=== PATIENT | male | born 1935 | race Hispanic/Latino ===

== ENCOUNTER 2017-10-07 01:36 | Observation (INO) | payer MEDICARE, BC ==
[2017-10-07 03:46] LABS: #Basophils 0.1 thou/uL (0.0-0.2); #Eosinphils 0.1 thou/uL (0.0-0.7); #Lymphocytes 2.3 thou/uL (1.20-3.40); #Monocytes 0.5 thou/uL (0.11-0.59); #Neutrophils 3.9 thou/uL (1.40-6.50); %Basophils 0.9 % (0.0-1.0); %Eosinophils 1.1 % (0.0-10.0); %Lymphocytes 33.6 % (21.0-51.0); %Monocytes 7.5 % (0.0-10.0); %Neutrophils 56.9 % (42.0-75.0); Hemoglobin 13.8 g/dL (14.0-18.0); Mean Corpuscular HGB CONC 35.2 g/dL (32.0-36.0); Mean Corpuscular Hemoglobin 33.1 pg (27.0-31.0); Mean Corpuscular Volume 94.1 fl (80.0-94.0); Mean Platelet Volume 7.9 fL (7.4-10.4); Platelet Count 162 thou/uL (130-400); RBC Distribution Width 12.9 % (11.5-14.5); Red Blood Cell (RBC) Count 4.16 mill/uL (4.70-6.10); White Blood Cell (WBC) Count 6.9 thou/uL (4.8-10.8)
[2017-10-07 04:06] LABS: ALT (SGPT) 14 U/L (8-55); AST (SGOT) 20 U/L (5-34); Albumin 4.1 g/dL (3.4-4.8); Alkaline Phosphatase 41 U/L (40-150); Anion Gap 9 mmol/L (10-20); BUN (Urea Nitrogen) 25 mg/dL (8.4-25.7); Bilirubin, Total 0.7 mg/dL (0.2-1.2); Calc. Creatinine Clearance 0 mL/min (70-130); Carbon Dioxide 29 mmol/L (23-31); Chloride 107 mmol/L (98-107); Estimated GFR-MDRD 66; Globulin 3.2 g/dL (2.4-3.5); Glucose 102 mg/dL (83-110); Magnesium 2.3 mg/dL (1.6-2.6); Potassium 4.7 mmol/L (3.5-5.1); Protein, Total 7.3 g/dL (5.8-8.1); Sodium 140 mmol/L (136-145)
[2017-10-07 06:02] LABS: CKMB 5.3 ng/mL (0-6.6); Troponin I Less than 0.010 ng/mL (< 0.028)
[2017-10-07 06:48] LABS: Bilirubin Negative (Negative); Blood, Urine Negative (Negative); Clarity CLOUDY (Clear); Glucose, Urine (Dipstick) Negative (Negative); Leukocyte Negative (Negative); Nitrite Negative (Negative); Protein, Urine (Dipstick) Negative (Neg-Trace); Specific Gravity, Urine 1.018 (1.002-1.036); Urobilinogen 0.2 mg/dL (0.2-1.0)
--- NOTE | 2017-10-07 08:17 | RAD ---
PORTABLE CHEST: DATE: 10/07/17. PROVIDIED CLINICAL HISTORY: Panic attacks. FINDINGS: Comparison 02/24/11. Cardiac and mediastinal silhouette is within normal limits. No focal consolidat ion, pleural fluid, or pneumothorax apparent. IMPRESSION: No evidence for an acute cardiopulmonary process. POS: MIKE
[2017-10-07 08:30] LABS: Troponin I Less than 0.010 ng/mL (< 0.028)
[2017-10-07] MEDS ORDERED: Acetaminophen 325 MG TAB PO PRN (08:38)
[2017-10-07 10:35] VITALS: BMI 24.0
[2017-10-07] MEDS ORDERED: Famotidine 20 MG TAB PO SCH (11:00)
[2017-10-07 16:00] LABS: Troponin I Less than 0.010 ng/mL (< 0.028)
[2017-10-07 21:22] LABS: Troponin I Less than 0.010 ng/mL (< 0.028)
[2017-10-07] MEDS ORDERED: Melatonin 3 MG TAB PO PRN (23:25)
[2017-10-07] MEDS ORDERED: traMADol HCl 50 MG TAB PO PRN (23:25)
[2017-10-08 04:54] LABS: #Basophils 0.1 thou/uL (0.0-0.2); #Eosinphils 0.1 thou/uL (0.0-0.7); #Lymphocytes 2.3 thou/uL (1.20-3.40); #Monocytes 0.4 thou/uL (0.11-0.59); #Neutrophils 2.9 thou/uL (1.40-6.50); %Basophils 1.3 % (0.0-1.0); %Eosinophils 0.9 % (0.0-10.0); %Lymphocytes 39.9 % (21.0-51.0); %Monocytes 7.3 % (0.0-10.0); %Neutrophils 50.7 % (42.0-75.0); Hemoglobin 13.1 g/dL (14.0-18.0); Mean Corpuscular Hemoglobin 31.8 pg (27.0-31.0); Mean Corpuscular Volume 93.4 fl (80.0-94.0); Platelet Count 153 thou/uL (130-400); RBC Distribution Width 12.6 % (11.5-14.5); Red Blood Cell (RBC) Count 4.12 mill/uL (4.70-6.10); White Blood Cell (WBC) Count 5.8 thou/uL (4.8-10.8)
[2017-10-08 05:22] LABS: Anion Gap 9 mmol/L (10-20); BUN (Urea Nitrogen) 20 mg/dL (8.4-25.7); Calc. Creatinine Clearance 57 mL/min (70-130); Carbon Dioxide 26 mmol/L (23-31); Cardiac Risk 3.5 (Less than 4.5); Chloride 106 mmol/L (98-107); Cholesterol 174 mg/dl (< 200 Desired); Estimated GFR-MDRD 78; Glucose 82 mg/dL (83-110); HDL Cholesterol 50 mg/dL (>60 Neg Risk); LDL Cholesterol, Calculated 105 mg/dL; Potassium 4.2 mmol/L (3.5-5.1); Sodium 137 mmol/L (136-145); Triglycerides 94 mg/dL (Less than 150)
--- NOTE | 2017-10-08 08:45 | PDOC.EVN ---
Event Note - Event Note Event Note: [facility] DICTATED #[id number]
--- NOTE | 2017-10-08 09:42 | HP ---
DATE OF ADMISSION: 10/07/2017 CHIEF COMPLAINT: Epigastric and chest pain. HISTORY OF PRESENT ILLNESS: This is an 82-year-old male admitted to the hospital due to epigastric chest pain and burning sensation. The patient states that he has been having these issues as well as panic attacks in the recent past few days. The patient states that he was at his PCP's office and was given Xanax; however, this has not helped him at all. He states that whenever he goes to sleep, he is having difficulty sleeping. He has severe panic attack and is unable to bring himself back to normal. The patient states that he has otherwise no other associated issues. No alleviating or aggravating factors and this is not something that was there until recently. PAST SURGICAL HISTORY: None per patient. SOCIAL HISTORY: The patient denies drinking or smoking. FAMILY HISTORY: None. MEDICATIONS: Xanax p.r.n. and [id number] medications. ALLERGIES: No known drug allergies. REVIEW OF SYSTEMS: Twelve point review of systems performed. Pertinent positives in the HPI, otherwise negative. PHYSICAL EXAMINATION: VITAL SIGNS: Blood pressure is 108/57, O2 saturations 96% on room air, temperature 98.1, pulse of 62, respiratory rate of 14. GENERAL: The patient lying in bed in no acute discomfort. HEENT: Pupils equal, round, react to light. Extraocular muscles intact. Oral cavity moist and pink. CARDIOVASCULAR: Reveals regular rate and rhythm. S1 and S2. No murmurs, rubs or gallops appreciated. PULMONARY: Clear to auscultation bilaterally aerating well. No respiratory distress. ABDOMEN: Positive bowel sounds, soft, nontender. EXTREMITIES: 2+ peripheral pulses. No edema. NEUROLOGIC: Cranial nerves II-XII intact, no loss of motor sensory function. LABORATORY DATA: CBC normal. BMP normal. TSH normal. UA normal. ASSESSMENT AND PLAN: 1. Epigastric pain. 2. Chest pain. PLAN: We will admit the patient to tele observation, do a cardiac workup. Trend troponins. Repeat labs in the morning. Get an echocardiogram. If all negative, the patient likely will be discharged with a PPI and follow up outpatient with his primary care team. Patient and family wish to keep him as a full code. Case and plan discussed with the patient at length. He understands and agrees with this plan. MATTIE
--- NOTE | 2017-10-08 09:43 | PDOC.EVN ---
Event Note - Event Note Event Note: DC SUMMARY #[id number]
[2017-10-08 11:51] VITALS: BP 100/59; TEMP 97.9
--- NOTE | 2017-10-08 13:22 | DIS ---
DATE OF ADMISSION: 10/07/2017 DATE OF DISCHARGE: 10/08/2017 ADMISSION DIAGNOSES: Epigastric pain, chest discomfort. DISCHARGE DIAGNOSES: 1. Chest pain, resolved. 2. Epigastric pain, likely secondary to gastroesophageal reflux disease. HOSPITAL COURSE: An 82-year-old male who was admitted for epigastric pain as well as panic episodes. He states that he had epigastric pain and chest discomfort and so decided to present to the ER. Th e patient at the point in time of admission was found to be stable, was admitted to the [facility] followed by Internal Medicine with 4 negative cardiac enzymes and a normal urina lysis, normal TSH as well as a normal lipid panel, normal CBC, normal BMP repeated twice. The patien t had an echocardiogram performed as well which was acceptable. The patient upon time of discharge w as stable. He denied any nausea, vomiting, diarrhea or constipation, chest pain, shortness of breath . The patient was to follow up outpatient within 2 weeks with expectant management for further manag ement and care. The patient was given a prescription for Protonix 40 mg to be taken daily. Case and plan discussed with the patient's , as well as his son at length. They understand and agree wit h this plan. DISPOSITION: Home. FOLLOWUP: Follow up with PCP in 2 weeks. MEDICATIONS: Resume home medication. Script for Protonix 40 mg daily, given. CONDITION ON DISCHARGE: Stable. PROGNOSIS: Good. DIET: Low fat, low calorie, high fiber diet. ACTIVITY: As tolerated.
== END 2017-10-08 15:18 | disposition home or self-care (01) ==
LOC: ERS 01:36 → 2SW 10:10
PROVIDERS: ADMIT Internal Medicine; ATTEND Internal Medicine
DX: R07.89 Other chest pain (principal); R10.13 Epigastric pain; F41.0 Panic disorder [episodic paroxysmal anxiety]; Z79.899 Other long term (current) drug therapy
CPT/HCPCS: 71045; 80048; 80061; 81003; 82553; 83735; 83880; 84484 ×2; 85025; 93005; 93306; 99285; G0378; 36415; 80053; 84443; A4216

== ENCOUNTER 2021-05-14 06:38 | Observation (INO) | payer MEDICARE, BC ==
[2021-05-14 07:34] LABS: #Lymphocytes 1.5 thou/uL (1.20-3.40); #Monocytes 0.4 thou/uL (0.11-0.59); #Neutrophils 3.8 thou/uL (1.40-6.50); %Basophils 0.6 % (0.0-1.0); %Eosinophils 0.8 % (0.0-10.0); %Lymphocytes 26.2 % (21.0-51.0); %Monocytes 6.8 % (0.0-10.0); %Neutrophils 65.7 % (42.0-75.0); Hemoglobin 13.1 g/dL (14.0-18.0); Mean Corpuscular HGB CONC 34.9 g/dL (32.0-36.0); Mean Corpuscular Hemoglobin 33.7 pg (27.0-31.0); Mean Corpuscular Volume 96.5 fL (78.0-98.0); Mean Platelet Volume 8.4 fL (7.4-10.4); Platelet Count 176 thou/uL (130-400); RBC Distribution Width 11.7 % (11.5-14.5); Red Blood Cell (RBC) Count 3.88 mill/uL (4.70-6.10); White Blood Cell (WBC) Count 5.7 thou/uL (4.8-10.8)
[2021-05-14 07:54] LABS: ALT (SGPT) 13 U/L (8-55); AST (SGOT) 19 U/L (5-34); Acetaminophen Less than 6.0 mcg/mL (10.0-30.0); Albumin 3.7 g/dL (3.4-4.8); Alcohol Less than 10 mg/dL (Less than 10); Alkaline Phosphatase 49 U/L (40-110); Anion Gap 17 mmol/L (10-20); BUN (Urea Nitrogen) 20 mg/dL (8.4-25.7); Bilirubin, Total 0.7 mg/dL (0.2-1.2); Calc. Creatinine Clearance 0 mL/min (70-130); Calcium 9.6 mg/dL (7.8-10.44); Carbon Dioxide 19 mmol/L (23-31); Chloride 104 mmol/L (98-107); Globulin 3.4 g/dL (2.4-3.5); Glucose 125 mg/dL (83-110); Protein, Total 7.1 g/dL (5.8-8.1); Salicylate Less than 8.0 mg/dL (15.0-30.0); Sodium 136 mmol/L (136-145)
[2021-05-14 09:03] LABS: Bilirubin Negative (Negative); Blood, Urine Negative (Negative); Clarity Clear (Clear); Glucose, Urine (Dipstick) Normal (Negative); Ketone, Urine Negative (Negative); Leukocyte Negative Leu/uL (Negative); Nitrite Negative (Negative); Protein, Urine (Dipstick) 10 mg/dL (Neg-Trace); Specific Gravity, Urine 1.012 (1.002-1.036); Urobilinogen Normal mg/dL (Less than 2)
[2021-05-14] MEDS ORDERED: levETIRAcetam in NS 1,500 MG in Premix Bag 1 BAG IVPB SCH (09:45)
[2021-05-14] MEDS ORDERED: Guaifenesin DM 100-10/5 ML UDCUP PO PRN (10:30)
[2021-05-14] MEDS ORDERED: Ondansetron ODT 4 MG TAB PO PRN (10:30)
[2021-05-14] MEDS ORDERED: hydrALAZINE 20 MG/ML VIAL SLOW IVP PRN (10:30)
[2021-05-14] MEDS ORDERED: Acetaminophen 650 MG Suppository PR PRN (10:30)
[2021-05-14] MEDS ORDERED: Ondansetron PF 4 MG/2 ML Vial IVP PRN (10:30)
[2021-05-14] MEDS ORDERED: Acetaminophen 325 MG TAB PO PRN (10:30)
[2021-05-14 12:46] VITALS: BMI 24.7
[2021-05-14] MEDS ORDERED: Atorvastatin Calcium 40 MG TAB PO SCH (21:00)
[2021-05-14] MEDS: levETIRAcetam in NS 1,000 MG in Premix Bag 1 BAG IVPB SCH (21:03)
[2021-05-15 05:30] LABS: Mean Corpuscular HGB CONC 32.7 g/dL (32.0-36.0); Mean Corpuscular Hemoglobin 31.2 pg (27.0-31.0); Mean Corpuscular Volume 95.5 fL (78.0-98.0); Mean Platelet Volume 9.4 fL (7.4-10.4); Platelet Count 147 thou/uL (130-400); RBC Distribution Width 11.6 % (11.5-14.5); Red Blood Cell (RBC) Count 3.86 mill/uL (4.70-6.10); White Blood Cell (WBC) Count 7.8 thou/uL (4.8-10.8)
[2021-05-15 05:45] LABS: Anion Gap 14 mmol/L (10-20); BUN (Urea Nitrogen) 14 mg/dL (8.4-25.7); Calc. Creatinine Clearance 46 mL/min (70-130); Calcium 9.5 mg/dL (7.8-10.44); Carbon Dioxide 20 mmol/L (23-31); Cardiac Risk 4.3 (Less than 4.5); Chloride 109 mmol/L (98-107); Cholesterol 168 mg/dl (< 200 Desired); Glucose 80 mg/dL (83-110); HDL Cholesterol 39 mg/dL (>60 Neg Risk); LDL Cholesterol, Calculated 111 mg/dL; Potassium 4.4 mmol/L (3.5-5.1); Sodium 139 mmol/L (136-145); Triglycerides 90 mg/dL (Less than 150)
[2021-05-15 05:59] LABS: #Eosinphils 0.1 thou/uL (0.0-0.7); #Lymphocytes 1.7 thou/uL (1.20-3.40); #Monocytes 0.7 thou/uL (0.11-0.59); #Neutrophils 5.4 thou/uL (1.40-6.50); %Basophils 0.1 % (0.0-1.0); %Eosinophils 0.8 % (0.0-10.0); %Lymphocytes 21.3 % (21.0-51.0); %Monocytes 9.2 % (0.0-10.0); %Neutrophils 68.6 % (42.0-75.0)
[2021-05-15 08:09] VITALS: TEMP 97.7
[2021-05-15] MEDS: levETIRAcetam in NS 1,000 MG in Premix Bag 1 BAG IVPB SCH (08:51)
[2021-05-15] MEDS ORDERED: Aspirin 81 mg Enteric Coated Tablet PO SCH (09:00)
[2021-05-15 11:43] VITALS: BP 119/65
== END 2021-05-15 12:20 | disposition home or self-care (01) ==
LOC: ERS 06:38 → NEURO 09:56
PROVIDERS: ADMIT Internal Medicine; ATTEND Internal Medicine
DX: R56.9 Unspecified convulsions (principal); G89.29 Other chronic pain; M16.11 Unilateral primary osteoarthritis, right hip; I45.10 Unspecified right bundle-branch block; R00.0 Tachycardia, unspecified; I99.8 Other disorder of circulatory system; K21.9 Gastro-esophageal reflux disease without esophagitis; Z79.899 Other long term (current) drug therapy; Z79.891 Long term (current) use of opiate analgesic
CPT/HCPCS: 70450; 70551; 80048; 80053; 80061; 80307; 81003; 84484; 85025 ×2; 87040; 87086; 93005; 96374; 96376 ×2; 97116; 99285; G0378 ×3; J1953; 36415

== ENCOUNTER 2021-06-28 13:57 | Outpatient (CLI) | payer MEDICARE, BC | END 2021-06-28 13:58 | disposition home or self-care (01) | LOC: EEG 13:57 | PROVIDERS: ATTEND Psychiatry & Neurology Neurology | DX: R56.9 Unspecified convulsions (principal) | CPT/HCPCS: 95816; 95957 ==

== ENCOUNTER 2021-07-05 10:50 | Outpatient (CLI) | payer MEDICARE, BC | END 2021-07-05 10:51 | disposition home or self-care (01) | LOC: MRI 10:50 | PROVIDERS: ATTEND Psychiatry & Neurology Neurology | DX: R56.9 Unspecified convulsions (principal); J34.89 Other specified disorders of nose and nasal sinuses; I67.89 Other cerebrovascular disease | CPT/HCPCS: 70553 ==

== ENCOUNTER 2023-05-10 17:28 | Inpatient (IN) | payer MEDICARE, BC ==
[2023-05-10 18:01] LABS: #Monocytes 0.6 thou/uL (0.11-0.59); #Neutrophils 6.1 thou/uL (1.40-6.50); %Basophils 0.5 % (0.0-1.0); %Eosinophils 0.2 % (0.0-10.0); %Lymphocytes 17.6 % (21.0-51.0); %Monocytes 6.7 % (0.0-10.0); %Neutrophils 74.9 % (42.0-75.0); Hematocrit 32.2 % (42.0-52.0); Hemoglobin 10.6 g/dL (14.0-18.0); Mean Corpuscular HGB CONC 32.9 g/dL (32.0-36.0); Mean Corpuscular Hemoglobin 32.6 pg (27.0-31.0); Mean Corpuscular Volume 99.1 fl (78.0-98.0); Mean Platelet Volume 11.3 fL (7.4-10.4); Platelet Count 196 10x3/uL (130-400); RBC Distribution Width 13.7 % (11.5-14.5); Red Blood Cell (RBC) Count 3.25 mill/uL (4.70-6.10); White Blood Cell (WBC) Count 8.2 10x3/uL (4.8-10.8)
[2023-05-10 18:30] LABS: ALT (SGPT) 14 U/L (8-55); AST (SGOT) 34 U/L (5-34); Albumin 4.2 g/dL (3.4-4.8); Alkaline Phosphatase 45 U/L (40-110); Anion Gap 16 mmol/L (10-20); BUN (Urea Nitrogen) 37 mg/dL (8.4-25.7); Bilirubin, Total 0.6 mg/dL (0.2-1.2); Calc. Creatinine Clearance 0 mL/min (70-130); Calcium 9.7 mg/dL (7.8-10.44); Carbon Dioxide 22 mmol/L (23-31); Chloride 102 mmol/L (98-107); Estimated GFR 40; Globulin 3.1 g/dL (2.4-3.5); Glucose 116 mg/dL (83-110); Lipase 44 U/L (8-78); Potassium 5.3 mmol/L (3.5-5.1); Protein, Total 7.3 g/dL (5.8-8.1); Sodium 135 mmol/L (136-145)
[2023-05-10 18:34] LABS: Troponin I 0.032 ng/mL (< 0.028)
[2023-05-10] MEDS ORDERED: Aspirin Chewable 81 MG TAB ONE (21:20)
[2023-05-10] MEDS ORDERED: Acetaminophen 650 MG Suppository PR PRN (21:55)
[2023-05-10] MEDS ORDERED: Ondansetron ODT 4 MG TAB PO PRN (21:55)
[2023-05-10] MEDS ORDERED: Acetaminophen 325 MG TAB PO PRN (21:55)
[2023-05-10] MEDS ORDERED: Ondansetron PF 4 MG/2 ML Vial IVP PRN (21:55)
[2023-05-11 01:10] VITALS: BMI 16.9
[2023-05-11 02:21] LABS: SARS-CoV-2 NAA Rapid Test Not Detected (NotDetected)
[2023-05-11 03:50] LABS: #Eosinphils 0.1 thou/uL (0.0-0.7); #Monocytes 0.5 thou/uL (0.11-0.59); %Basophils 0.4 % (0.0-1.0); %Eosinophils 1.9 % (0.0-10.0); %Lymphocytes 30.5 % (21.0-51.0); %Monocytes 9.8 % (0.0-10.0); %Neutrophils 57.2 % (42.0-75.0); Hematocrit 26.2 % (42.0-52.0); Hemoglobin 8.9 g/dL (14.0-18.0); Mean Corpuscular Hemoglobin 33.3 pg (27.0-31.0); Mean Corpuscular Volume 98.1 fl (78.0-98.0); Mean Platelet Volume 11.5 fL (7.4-10.4); Platelet Count 142 10x3/uL (130-400); RBC Distribution Width 13.9 % (11.5-14.5); Red Blood Cell (RBC) Count 2.67 mill/uL (4.70-6.10); White Blood Cell (WBC) Count 5.2 10x3/uL (4.8-10.8)
[2023-05-11] MEDS: Sodium Chloride 0.9% 1,000 ML IV SCH ×2 (04:05→17:49)
[2023-05-11 04:17] LABS: Anion Gap 14 mmol/L (10-20); BUN (Urea Nitrogen) 37 mg/dL (8.4-25.7); Calc. Creatinine Clearance 25 mL/min (70-130); Calcium 8.9 mg/dL (7.8-10.44); Carbon Dioxide 22 mmol/L (23-31); Chloride 104 mmol/L (98-107); Estimated GFR 51; Glucose 58 mg/dL (83-110); Potassium 4.8 mmol/L (3.5-5.1); Sodium 135 mmol/L (136-145)
[2023-05-11 04:23] LABS: Troponin I 0.025 ng/mL (< 0.028)
[2023-05-11 04:42] LABS: Bacteria/HPF None Seen HPF (None Seen); Bilirubin Negative (Negative); Blood, Urine Negative (Negative); Clarity Clear (Clear); Glucose, Urine (Dipstick) Normal (Negative); Ketone, Urine Negative (Negative); Leukocyte Negative Leu/uL (Negative); Nitrite Negative (Negative); Protein, Urine (Dipstick) Negative (Neg-Trace); RBC/HPF 0-3 HPF (0-3); Specific Gravity, Urine 1.016 (1.002-1.036); Squamous Epithelial None Seen HPF (0-3); Urobilinogen Normal mg/dL (Less than 2); WBC/HPF 0-3 HPF (0-3)
[2023-05-11] MEDS: Atorvastatin Calcium 20 MG TAB PO SCH (08:52)
[2023-05-11] MEDS: levETIRAcetam 500 MG TAB PO SCH ×2 (08:52→21:16)
[2023-05-11] MEDS ORDERED: Furosemide 20 MG/2 ML VIAL SLOW IVP SCH (15:15)
[2023-05-11] MEDS: Donepezil HCl 5 MG TAB PO SCH (21:16)
[2023-05-12 04:19] LABS: #Eosinphils 0.1 thou/uL (0.0-0.7); #Monocytes 0.5 thou/uL (0.11-0.59); #Neutrophils 4.1 thou/uL (1.40-6.50); %Basophils 0.3 % (0.0-1.0); %Eosinophils 1.8 % (0.0-10.0); %Monocytes 8.3 % (0.0-10.0); %Neutrophils 68.4 % (42.0-75.0); Hematocrit 28.1 % (42.0-52.0); Hemoglobin 9.3 g/dL (14.0-18.0); Mean Corpuscular HGB CONC 33.1 g/dL (32.0-36.0); Mean Corpuscular Hemoglobin 32.4 pg (27.0-31.0); Mean Corpuscular Volume 97.9 fl (78.0-98.0); Mean Platelet Volume 11.6 fL (7.4-10.4); Platelet Count 144 10x3/uL (130-400); RBC Distribution Width 13.9 % (11.5-14.5); Red Blood Cell (RBC) Count 2.87 mill/uL (4.70-6.10)
[2023-05-12 05:00] LABS: Anion Gap 12 mmol/L (10-20); BUN (Urea Nitrogen) 27 mg/dL (8.4-25.7); Calc. Creatinine Clearance 28 mL/min (70-130); Calcium 8.9 mg/dL (7.8-10.44); Carbon Dioxide 25 mmol/L (23-31); Chloride 106 mmol/L (98-107); Estimated GFR 58; Glucose 83 mg/dL (83-110); Potassium 4.3 mmol/L (3.5-5.1); Sodium 139 mmol/L (136-145)
[2023-05-12] MEDS: Atorvastatin Calcium 20 MG TAB PO SCH (09:26)
[2023-05-12] MEDS: levETIRAcetam 500 MG TAB PO SCH ×2 (09:26→20:28)
[2023-05-12] MEDS ORDERED: CeleCOXIB 100 MG CAP PO SCH ×2 (10:15→16:45)
[2023-05-12 15:26] LABS: Magnesium 1.8 mg/dL (1.6-2.6)
[2023-05-12] MEDS: Donepezil HCl 5 MG TAB PO SCH (20:28)
[2023-05-13 04:32] LABS: #Eosinphils 0.1 thou/uL (0.0-0.7); #Monocytes 0.5 thou/uL (0.11-0.59); #Neutrophils 3.1 thou/uL (1.40-6.50); %Basophils 0.4 % (0.0-1.0); %Eosinophils 1.6 % (0.0-10.0); %Lymphocytes 27.2 % (21.0-51.0); %Monocytes 9.4 % (0.0-10.0); %Neutrophils 61.2 % (42.0-75.0); Hematocrit 28.9 % (42.0-52.0); Hemoglobin 9.4 g/dL (14.0-18.0); Mean Corpuscular HGB CONC 32.5 g/dL (32.0-36.0); Mean Corpuscular Hemoglobin 32.1 pg (27.0-31.0); Mean Corpuscular Volume 98.6 fl (78.0-98.0); Mean Platelet Volume 11.7 fL (7.4-10.4); Platelet Count 154 10x3/uL (130-400); Red Blood Cell (RBC) Count 2.93 mill/uL (4.70-6.10); White Blood Cell (WBC) Count 5.1 10x3/uL (4.8-10.8)
[2023-05-13 05:09] LABS: Anion Gap 12 mmol/L (10-20); BUN (Urea Nitrogen) 27 mg/dL (8.4-25.7); Calc. Creatinine Clearance 25 mL/min (70-130); Calcium 8.6 mg/dL (7.8-10.44); Carbon Dioxide 23 mmol/L (23-31); Chloride 106 mmol/L (98-107); Estimated GFR 50; Glucose 82 mg/dL (83-110); Magnesium 1.8 mg/dL (1.6-2.6); Potassium 4.4 mmol/L (3.5-5.1); Sodium 137 mmol/L (136-145)
[2023-05-13] MEDS: Atorvastatin Calcium 20 MG TAB PO SCH (08:00)
[2023-05-13] MEDS: levETIRAcetam 500 MG TAB PO SCH (08:01)
[2023-05-13] MEDS ORDERED: CeleCOXIB 100 MG CAP PO SCH (09:00)
[2023-05-13 11:27] VITALS: BP 99/53; TEMP 97.9
== END 2023-05-13 16:42 | disposition home or self-care (01) | DRG 291 ==
LOC: ERS 17:28 → 2SW 21:55 → OBSVTOIN 05-11 16:02
PROVIDERS: ADMIT Student in an Organized Health Care Education/Training Program; ATTEND Nurse Practitioner Family
DX: I13.0 Hypertensive heart and chronic kidney disease with heart failure and stage 1 through stage 4 chronic kidney disease, or unspecified chronic kidney disease (principal); I50.31 Acute diastolic (congestive) heart failure; J90 Pleural effusion, not elsewhere classified; N17.9 Acute kidney failure, unspecified; Z66 Do not resuscitate; I48.0 Paroxysmal atrial fibrillation; E78.5 Hyperlipidemia, unspecified; G40.909 Epilepsy, unspecified, not intractable, without status epilepticus; K21.9 Gastro-esophageal reflux disease without esophagitis; N18.9 Chronic kidney disease, unspecified; R77.8 Other specified abnormalities of plasma proteins; D63.1 Anemia in chronic kidney disease; R53.81 Other malaise; Z88.5 Allergy status to narcotic agent; Z79.899 Other long term (current) drug therapy; Z11.52 Encounter for screening for COVID-19
CPT/HCPCS: 36415; 36416; 71045; 80048; 80053; 81001; 83690; 83735; 83880; 84484; 85025; 93005; 93010; 93306; G0378; J1940; J7050; U0002

== ENCOUNTER → 2023-11-22 | Day surgery (SDC) | payer MEDICARE, BC ==
[2023-11-21 12:36] VITALS: BMI 28.5
[~2023-11-22] MED LIST: Lidocaine 1% PF 5 ML VIAL ONE; PROPOFOL 20 ML ONE
== END ==
LOC: SDC 06:15
PROVIDERS: ATTEND Internal Medicine Gastroenterology
PROC: 0DB68ZX Excision of Stomach, Via Natural or Artificial Opening Endoscopic, Diagnostic (ICD-10-PCS; principal; 2023-11-22)
DX: K29.50 Unspecified chronic gastritis without bleeding (principal); K31.89 Other diseases of stomach and duodenum; K25.9 Gastric ulcer, unspecified as acute or chronic, without hemorrhage or perforation; D64.9 Anemia, unspecified; E11.9 Type 2 diabetes mellitus without complications; E78.00 Pure hypercholesterolemia, unspecified; Z86.010 Personal history of colon polyps; E78.5 Hyperlipidemia, unspecified; M19.90 Unspecified osteoarthritis, unspecified site; Z98.890 Other specified postprocedural states; Z79.899 Other long term (current) drug therapy; Z88.5 Allergy status to narcotic agent
CPT/HCPCS: 43239; J2704; 88305; 88342

== ENCOUNTER 2025-02-06 18:04 | Emergency (ER) | payer MEDICARE, BC ==
[2025-02-06 18:41] LABS: #Basophils Less than 0.03 10x3/uL (0.0-0.2); #Eosinophils 0.03 10x3/uL (0.0-0.7); #Monocytes 0.47 10x3/uL (0.11-0.59); #Neutrophils 2.56 10x3/uL (1.40-6.50); %Basophils 0.3 % (0.0-1.0); %Eosinophils 0.8 % (0.0-10.0); %Lymphocytes 18.0 % (21.0-51.0); %Monocytes 12.5 % (0.0-10.0); %Neutrophils 67.9 % (42.0-75.0); Hematocrit 23.5 % (42.0-52.0); Hemoglobin 7.5 g/dL (14.0-18.0); Mean Corpuscular Hemoglobin 33.3 pg (27.0-31.0); Mean Corpuscular Volume 104.4 fL (78.0-98.0); Platelet Count 201 10x3/uL (130-400); Red Blood Cell (RBC) Count 2.25 mill/uL (4.70-6.10); White Blood Cell (WBC) Count 3.77 10x3/uL (4.8-10.8)
[2025-02-06 18:59] LABS: ALT (SGPT) 8 U/L (Less than 45); AST (SGOT) 23 U/L (11-34); Albumin 3.3 g/dL (3.1-4.5); Alkaline Phosphatase 40 U/L (40-110); Anion Gap 10 mmol/L (10-20); BUN (Urea Nitrogen) 33 mg/dL (8.4-25.7); Bilirubin, Total 0.4 mg/dL (0.3-1.2); CK (CPK) 109 U/L (30-200); Calc. Creatinine Clearance 0 mL/min (70-130); Calcium 8.7 mg/dL (7.8-10.44); Carbon Dioxide 22 mmol/L (23-31); Chloride 110 mmol/L (98-107); Globulin 2.4 g/dL (2.4-3.5); Glucose 69 mg/dL (83-110); Potassium 4.8 mmol/L (3.5-5.1); Sodium 137 mmol/L (136-145)
== END 2025-02-06 19:34 | disposition home or self-care (01) ==
LOC: ERS 18:04
DX: T67.5XXA Heat exhaustion, unspecified, initial encounter (principal); E86.0 Dehydration; E78.00 Pure hypercholesterolemia, unspecified; Z79.899 Other long term (current) drug therapy
CPT/HCPCS: 36415; 80053; 82550; 83605; 83880; 84484; 85025; 99284

== ENCOUNTER 2025-03-25 08:25 | Day surgery (SDC) | payer MEDICARE, BC ==
[2025-03-25 09:14] LABS: #Basophils 0.03 10x3/uL (0.0-0.2); #Eosinophils 0.04 10x3/uL (0.0-0.7); #Monocytes 0.61 10x3/uL (0.11-0.59); #Neutrophils 2.91 10x3/uL (1.40-6.50); %Basophils 0.6 % (0.0-1.0); %Eosinophils 0.8 % (0.0-10.0); %Lymphocytes 24.7 % (21.0-51.0); %Monocytes 12.8 % (0.0-10.0); %Neutrophils 60.9 % (42.0-75.0); Hematocrit 26.3 % (42.0-52.0); Hemoglobin 8.3 g/dL (14.0-18.0); Mean Corpuscular Hemoglobin 34.0 pg (27.0-31.0); Mean Corpuscular Volume 107.8 fL (78.0-98.0); Platelet Count 157 10x3/uL (130-400); Red Blood Cell (RBC) Count 2.44 mill/uL (4.70-6.10); White Blood Cell (WBC) Count 4.78 10x3/uL (4.8-10.8)
[2025-03-25 09:28] LABS: INR-International Normal Ratio 1.2; PTT 36.0 sec (22.9-36.1); Prothrombin Time 15.0 sec (12.0-14.7)
[2025-03-25] MEDS ORDERED: FLU (Fluad Triv) 25-26 (65UP)PF 45 MCG/0.5 ML Syringe IM ONE (09:45)
[2025-03-25] MEDS ORDERED: diphenhydrAMINE 50 MG/ML VIAL ONE (10:07)
[2025-03-25] MEDS ORDERED: Ondansetron PF 4 MG/2 ML Vial ONE (10:07)
[2025-03-25] MEDS ORDERED: Sodium Bicarbonate 2.5 MEQ/5 ML SDV ONE (10:08)
[2025-03-25] MEDS ORDERED: Lidocaine 1% w/Epinephrine 1:100K 20 ML VIAL ONE (10:08)
== END 2025-03-25 11:50 | disposition home or self-care (01) ==
LOC: CT 08:25
PROVIDERS: ATTEND Internal Medicine Hematology & Oncology
PROC: 07DR3ZX Extraction of Iliac Bone Marrow, Percutaneous Approach, Diagnostic (ICD-10-PCS; principal; 2025-03-25)
DX: D75.89 Other specified diseases of blood and blood-forming organs (principal); D53.9 Nutritional anemia, unspecified; D50.0 Iron deficiency anemia secondary to blood loss (chronic); Z88.8 Allergy status to other drugs, medicaments and biological substances
CPT/HCPCS: 20225; 36000; 77012 ×2; 85025; 85097; 85610; 85730; C1830; 36415; 88184; 88185; 88237; 88264; 88280; 88305; 88311; 88313; 88341; 88342; J1200; J2405; J3010